=== PATIENT | female | born 1970 | race Two or more races ===

== ENCOUNTER 2020-04-14 18:32 | Emergency (ER) | payer OTHER ==
[~2020-04-14] VITALS: Ht 152.4 cm; Wt 68.9 kg
== END 2020-04-15 01:00 | disposition designated cancer center or children's hospital (05) ==
LOC: ER 18:32
DX: I74.3 Embolism and thrombosis of arteries of the lower extremities (principal); I70.291 Other atherosclerosis of native arteries of extremities, right leg; M72.2 Plantar fascial fibromatosis; M77.31 Calcaneal spur, right foot; R20.0 Anesthesia of skin; Z72.0 Tobacco use
CPT/HCPCS: 73706; 93005; 93922; 93926; 93971; Q9965